=== PATIENT | male | born 1940 | race Caucasian/White ===

== ENCOUNTER → 2019-03-18 | Outpatient (CLI) | payer MEDICARE, OTHER ==
[~2019-03-18] MED LIST: REGADENOSON 0.4 MG/5 ML DISP.SYRIN. IV ONE
--- NOTE | 2019-03-18 09:20 | PCVCIMAG ---
APPROVED REPORT Study performed: 03/18/2019 07:59:13 EXAM: Comprehensive 2D, Doppler, and color-flow Echocardiogram Patient Location: Echo lab Status: routine BSA: 1.95 HR: 78 bpmBP: 132/70 mmHg Rhythm: NSR Other Information Study Quality: Good Risk Factors: Cardiac Risk Factors: HTN, Hyperlipidemia Indications Atrial Fibrillation Dyspnea 2D Dimensions IVSd: 9.26 (7-11mm)LVOT Diam: 19.00 (18-24mm) LVDd: 46.21 mm PWd: 9.23 (7-11mm)Ascending Ao: 37.46 (22-36mm) LVDs: 30.92 (25-40mm) Left Atrium: 42.16 (27-40mm) Aortic Root: 33.65 mm LV Single Plane 4CH: 64.04 % LV Single Plane 2CH: 63.09 % Biplane EF: 63.8 % Volumes Left Atrial Volume (Systole) Single Plane 4CH: 61.25 mLSingle Plane 2CH: 84.12 mL LA ESV Index: 39.00 mL/m2 Aortic Valve AoV Peak Valdemar.: 1.37 m/s AO Peak Gr.: 7.47 mmHgLVOT Max P.08 mmHg LVOT Max V: 1.01 m/s ANASTASIA Vmax: 2.15 cm2 AI Vmax: 4.38 m/s AI [place]: 2.35 m/s2 AI PHT: 540.49 ms Mitral Valve E/A Ratio: 1.1 MV Decel. Time: 199.64 ms MV E Max Valdemar.: 0.68 m/s MV A Valdemar.: 0.62 m/s IVRT: 69.20 ms TDI E/Lateral E': 6.80E/Medial E': 8.50 Medial E' Valdemar.: 0.08 m/s Lateral E' Valdemar.: 0.10 m/s Pulmonary Valve PV Peak Valdemar.: 1.18 m/sPV Peak Gr.: 5.60 mmHg Pulmonary Vein P Vein S: 0.38 m/sP Vein A: 0.26 m/s P Vein D: 0.43 m/sP Vein A Dur.: 76.1 msec P Vein S/D Ratio: 0.88 Tricuspid Valve TR Peak Valdemar.: 2.53 m/sRAP Estimate: 33.00 mmHg TR Peak Gr.: 25.65 mmHg PA Pressure: 33.00 mmHg Left Ventricle The left ventricle is normal size. There is normal LV segmental wall motion. There is normal left ventricular wall thickness. Left ventricular systolic function is normal. The left ventricular ejection fraction is within the normal range. LVEF is 60-65%. The left ventricular diastolic function is normal. Right Ventricle The right ventricle is normal size. The right ventricular systolic function is normal. Atria Left atrium is mildly dilated. The right atrium size is normal. Aortic Valve Aortic valve leaflets are mildly calcified. Mild aortic regurgitation. There is no aortic valvular stenosis. Mitral Valve The mitral valve is normal in structure. Mild mitral regurgitation. No evidence of mitral valve stenosis. Tricuspid Valve The tricuspid valve is normal in structure. Trace to mild tricuspid regurgitation. Pulmonary artery pressure is 30 mmHg. Pulmonic Valve The pulmonary valve is normal in structure. There is no pulmonic valvular regurgitation. Great Vessels The aortic root is normal in size. IVC is normal in size and collapses >50% with inspiration. Pericardium There is no pericardial effusion. <Conclusion> Left ventricular systolic function is normal. There is normal LV segmental wall motion. LVEF is 60-65%. Normal diastolic function Left atrium is mildly dilated. Aortic valve leaflets are mildly calcified. Mild aortic regurgitation, no stenosis. The mitral valve is normal in structure. Mild mitral regurgitation. Trace to mild tricuspid regurgitation. Pulmonary artery pressure of 30 mmHg. There is no pericardial effusion.
--- NOTE | 2019-03-18 14:47 | PCVCIMAG ---
APPROVED REPORT Imaging Protocol: Rest Tc-99m/Stress Tc-99m 1 day Study performed: 03/18/2019 08:49:36 Indication: Dyspnea, Atrial Fibrillation Patient Location: Out-Patient Stress Nurse: Mercedes Champion RN, Brenda Kennedy RN NE Tech:Meghan ANANTH TothMT Ht: 5 ft 10 in Wt: 174 lbs BSA: 1.97 m2 HR: 68 bpm BP: 159/91 mmHg BMI: 24.9 Rhythm: Sinus Rhythm Medical History Medical History: HTN, Hyperlipidemia, Former Smoker Medications: ASA, Atorvastatin, Coreg, Lisinopril-HCTZ, Xarelto Allergies: No known drug allergies Cardiac Risk Factors: Age Pretest Chest Pain Characteristics: No chest pain Exercise History: Physically active Resting Data Rest SPECT myocardial perfusion imaging was performed in supine position 45 minutes following the intravenous injection of 10.7 mCi of Tc-99m Sestamibi. Time of rest injection: 0845 Date: 03/18/2019 Administration Route: IV Administration Site: Right Hand Pharmacologic Stress Pharmacologic stress test was performed by injecting Regadenoson 0.4 mg IV push over 10-15 seconds immediately followed by the intravenous injection of 34.4 mCi of Tc-99m Sestamibi. Time of stress injection: 1000 Date: 03/18/2019 Administration Route: IV Administration Site: Right Hand Gated Stress SPECT was performed 45 minutes after stress injection. The images were gated to evaluate regional wall motion and calculate left ventricular ejection fraction. Stress Test Details Stress Test: Pharmacologic stress testing performed using 0.4 mg of regadenoson per 5 mL given IV over 10 seconds. Reason for pharmacologic stress test: physical limitation, bad hip. HRMax Heart Rate (APMHR): 144 bpm Resting HR: 68 bpmTarget HR (85% APMHR): 122 bpm Max HR Achieved: 90 bpm % of APMHR: 62 Recovery HR: 77 bpm BP Resting BP: 159/91 mmHg Max BP: 124/70 mmHg Recovery BP: 144/82 mmHg ECG Resting ECG: Sinus Rhythm Stress ECG: Sinus Rhythm ST Change: None Maximum ST Deviation: 0 mm Arrhythmia: VPC's Recovery ECG: Sinus Rhythm Recovery ST Change: None Recovery ST Deviation: 0 mm Recovery Arrhythmia: None Clinical Reason for Termination: Completed protocol Stress Symptoms: Chest tightness Symptoms resolved with caffeine. Symptoms resolved with caffeine. Stress ECG Conclusion ECG: Non-ischemic Clinical: Non-ischemic Study Quality Study: Good Artifact: Diaphragmatic artifact Study Data Post stress, the left ventricular ejection was 67%.. SSS: 0 SRS: 4 SDS: 0 TID = 0.98. Perfusion No evidence of stress induced ischemia or prior myocardial infarction. Wall Motion Normal left ventricular size and function with no regional wall motion abnormalities. Nuclear Conclusion No evidence of stress induced ischemia or prior myocardial infarction. Normal left ventricular size and function with no regional wall motion abnormalities. Post stress, the left ventricular ejection was 67%. No prior study available for comparison. Interpreted by: Merrill Martínez MD Electronically Approved: 03/18/2019 14:38:25 <Conclusion> ECG: Non-ischemic Clinical: Non-ischemic
== END | disposition home or self-care (01) ==
LOC: PCVCIMAG 07:48
PROVIDERS: ATTEND Internal Medicine
DX: I08.0 Rheumatic disorders of both mitral and aortic valves (principal); I48.91 Unspecified atrial fibrillation
CPT/HCPCS: 78452; 93017; 93306; A9500; J2785